=== PATIENT | male | born 1990 | race American Indian/Alaskan Native ===

== ENCOUNTER 2023-02-12 11:14 | Emergency (ER) | payer MEDICAID, SELFPAY ==
--- NOTE | ~2023-02-12 | US_ITS ---
EXAMINATION: US SCROTUM CLINICAL INFORMATION: Left testicle mass. COMPARISON: None available. TECHNIQUE: A sonogram of the scrotum was performed assessing sheriff-scale appearance and color Doppler flow. Spectral Doppler analysis of the arterial and venous flow were performed in the testes bilaterally. FINDINGS: RIGHT: Right testicle measures 4.6 x 2.4 x 2.8 cm, volume 16 mL. No focal testicular parenchymal lesions are visualized. Spectral Doppler analysis of the arterial and venous flow is normal in the right testis. Right epididymal head is normal in size. No right hydrocele or varicocele is seen. Right epididymal Doppler flow is normal. LEFT: Left testicle measures 4.5 x 2.2 x 2.6 cm, volume 14 mL. No focal testicular parenchymal lesions are visualized. Small appendix testis adjacent to the inferior testicle. Spectral Doppler analysis of the arterial and venous flow is normal in the left testis. Left epididymal head is normal in size. No left hydrocele or varicocele is seen. Left epididymal Doppler flow is normal. There is a oval shaped enterocolic solid avascular lesion just deep to the skin in the posterior left scrotum corresponding to palpable lump. This measures 0.6 x 0.4 x 0.9 cm. Ultrasound appearance is nonspecific. US/US scrotum doppler IMPRESSION: 0.6 x 0.4 x 0.9 cm solid appearing hyperechoic avascular lesion just deep to the skin corresponding to palpable abnormality. Ultrasound appearance is nonspecific. Otherwise normal scrotal ultrasound.
--- NOTE | ~2023-02-12 | US_ITS ---
EXAMINATION: US SCROTUM CLINICAL INFORMATION: Left testicle mass. COMPARISON: None available. TECHNIQUE: A sonogram of the scrotum was performed assessing sheriff-scale appearance and color Doppler flow. Spectral Doppler analysis of the arterial and venous flow were performed in the testes bilaterally. FINDINGS: RIGHT: Right testicle measures 4.6 x 2.4 x 2.8 cm, volume 16 mL. No focal testicular parenchymal lesions are visualized. Spectral Doppler analysis of the arterial and venous flow is normal in the right testis. Right epididymal head is normal in size. No right hydrocele or varicocele is seen. Right epididymal Doppler flow is normal. LEFT: Left testicle measures 4.5 x 2.2 x 2.6 cm, volume 14 mL. No focal testicular parenchymal lesions are visualized. Small appendix testis adjacent to the inferior testicle. Spectral Doppler analysis of the arterial and venous flow is normal in the left testis. Left epididymal head is normal in size. No left hydrocele or varicocele is seen. Left epididymal Doppler flow is normal. There is a oval shaped enterocolic solid avascular lesion just deep to the skin in the posterior left scrotum corresponding to palpable lump. This measures 0.6 x 0.4 x 0.9 cm. Ultrasound appearance is nonspecific. US/US scrotum IMPRESSION: 0.6 x 0.4 x 0.9 cm solid appearing hyperechoic avascular lesion just deep to the skin corresponding to palpable abnormality. Ultrasound appearance is nonspecific. Otherwise normal scrotal ultrasound.
[2023-02-12 11:31] VITALS: BP 135/88; PULSE 93; RESP 18; TEMP 36; O2SAT 99; BMI 29.4
--- NOTE | 2023-02-12 11:32 | ED.GENADULT ---
HPI - General Adult General Chief complaint: Urogenital-Male Stated complaint: abd pain Time Seen by Provider: 02/12/23 12:17 Source: patient Mode of arrival: ambulatory Limitations: no limitations History of Present Illness HPI narrative: 32 yo male presents to the ER for left testicular pain and painful urination. He states that he noticed a pimple on his left testicle about 3 to 4 days ago. He states that the pain is on and off. He reports painful urination that started yesterday. He reports that he leaks urine/mucous after urination. He denies abdominal pain, nausea, difficulty with urination. He reports that he is sexually active with his and uses protection. No N/V/D or abdominal pain. MD complaint: bump on left testicle, dysuria Onset (ago): day(s) Location: genitals and left Radiation: non-radiation Severity: moderate Quality: burning and aching Pain Consistency: intermittent Relieving factors: none Exacerbating factors: none Associated symptoms: denies other symptoms Treatments prior to arrival: none Related Data Previous Rx's Medication Instructions Recorded cephalexin 500 mg capsule 500 mg PO Q6H 7 days #28 caps 02/12/23 Allergies Allergy/AdvReac Type Severity Reaction Status Date / Time No Known Allergies Allergy Verified 02/12/23 11:31 Review of Systems Review of Systems: Yes all other systems are reviewed and are negative [facility] Social History Social History Advance Directives: No Advance Directives Information Provided: Yes Physical Exam ED Vital Signs: Vital Signs - 24 hr 02/12/23 11:31 Temperature 96.8 F Pulse Rate 93 Respiratory Rate 18 Blood Pressure 135/88 Pulse Oximetry 99 Oxygen Delivery Method Room Air BMI result Body Mass Index 29.4 Appearance: Alert. Oriented X3. No acute distress. Head: normocephalic, atraumatic. Eyes: Pupils equal, round and reactive to light. ENT: Pharynx normal. No tonsillar swelling or exudate. Neck: Normal inspection. Neck supple. CVS: Normal heart rate and rhythm. Pulses normal. Respiratory: No respiratory distress. Breath sounds normal. Abdomen: Soft and nontender. +BS x4 Skin: Skin warm and dry. Normal skin color. Normal skin turgor. No rashes. Genitourinary: 1 cm x 1 cm red fluctuant mass without surrounding eyrthemia or warmth of the left testicle Extremities: No lower extremity edema. No joint swelling. Neuro/psych: Oriented X 3. No motor deficit. No sensory deficit. CN II-XII intact. Normal speech and cognition. Course Course Course Narrative: This is an RME: Additional HPI, ROS, PE not included below will be deferred to primary provider. This is a 75-mlbl-ycu-male, with no known medical problems, presenting to the emergency department with complaints of hard painful lump on left testicle and dysuria x 1 week. Monogamous with . Hx of STIs in the past. Denies any fevers or chills. Denies hx of similar symptoms. Deferred exam until pt has a room in the main ER. VSS in department. Plan: UA and GC/Chlamydia urine ordered. Medications Administered Discontinued Medications Generic Name Dose Route Start Last Admin Trade Name Francesca PRN Reason Stop Dose Admin Ceftriaxone Sodium 500 mg/ 0 mg 02/12/23 13:20 02/12/23 13:37 Lidocaine HCl 1 ml IM 02/12/23 13:21 1 kit ONCE ONE Administration Procedures Abscess I/D Site: scrotum Side (if applicable): left Technique: incised with blade Sent for culture/gram staining?: No Irrigation: No Packing used?: none Medical Decision Making Medical Decision Making MDM Narrative: 31 yo male presents to the ER for left testicular pain and painful urination. He states that he had has a pimple like mass on his left testicle for 3-4 days. He states that he has noticed drainage from his penis after urination. On physcial examination there was a 1 cm x 1 cm red flucuant mass without surrounding erythemia or warmth of the left testicle. This is most consistent of an abscess and is unlikely to be zeke's gangrene as he is not a diabetic or morbidly obese. A small incision was made to drain the abscess. Urinalysis was normal. N. gonorrhoea PCR was positive and Chlamydia PCR was negative. Antibiotics prescribed for Gonorrhoea. manager administrative was used to explain the testing results, treatment. He was encouraged to discuss the results with his sexual partners. Stable for discharge home. Differential Diagnosis Differential Diagnoses: The differential diagnosis associated with the presentation includes NG, CT, cystitis, epididymis, proctitis, abscess of the left testicle, folliculitis, cellulitis, zeke's gangrene Lab Data [facility] Lab Attestation statement: I reviewed the patient's lab results. U/A normal. PCR + for gonorrhea, and negative for chlamydia Labs: Lab Results 02/12/23 02/12/23 Range/Units 11:44 11:44 Urine Color Yellow Urine Appearance Clear Urine pH 5.5 (5.0-9.0) Ur Specific [place] 1.025 (1.005-1.025) Urine Protein Negative (Neg-Trace) mg/dL Urine Glucose (UA) Negative (Negative) mg/dL Urine Ketones Negative (Negative) mg/dL Urine Blood Negative (Negative) Urine Nitrite Negative (Negative) Ur Leukocyte Esterase Negative (Negative) Chlam trachomat DNA PCR NOT DETECTED (Not Detect.) N.gonorrhoeae DNA (PCR) DETECTED A (Not Detect.) Independent Interpretation I performed an independent interpretation of an: Ultrasound Interpretation: Ultrasound was reviewed. Agree with radiologists findings. Radiology Impression Discussion of test interpretation with radiology: I have reviewed the radiologist's reading. Radiologist Impression: US scrotum doppler IMPRESSION: 0.6 x 0.4 x 0.9 cm solid appearing hyperechoic avascular lesion just deep to the skin corresponding to palpable abnormality. Ultrasound appearance is nonspecific. Otherwise normal scrotal ultrasound. Prescription Management I considered prescription management with: Antibiotic Critical Care Time Critical Care Time Critical Care Time: No Discharge Plan Discharge Clinical Impression: Gonorrhea, Abscess of testis Patient Disposition: Home, Self-Care Instructions: Gonorrhea (ED), Abscess (ED) Additional Instructions: You tested positive for gonorrhea today. This is a sexually transmitted infection. Your treated with intramuscular ceftriaxone. Take the prescribed antibiotic for the small abscess on your left testicle. Recommend warm soaks and warm baths to the area If you develop new or worsening symptoms call 911 or come back to the ER for further evaluation. Hoy diste positivo por gonorrea. Esta es alejandro infecci?n de transmisi?n sexual. Est? en tratamiento con ceftriaxona intramuscular. [place] el antibi?codie recetado para el sean?o absceso en merida test?culo demetrius. Recomiende remojos tibios y ba?os tibios en el ?yari. Si desarrolla s?ntomas nuevos o que empeoran, llame al 911 o regrese a la hugo de emergencias para alejandro evaluaci?n adicional. Prescriptions: New cephalexin 500 mg capsule 500 mg PO Q6H 7 Days Qty: 28 0RF Print Language: German
[2023-02-12 11:56] LABS: Appearance Urine Clear; Color Urine Yellow; Glucose Urine UA Negative (Negative); Leukocyte Esterase Urine Negative (Negative); Nitrite Urine Negative (Negative); PH 5.5 (5.0-9.0); Specific Gravity - Urine 1.025 (1.005-1.025); Urine Blood Negative (Negative); Urine Ketones Negative (Negative); Urine Protein Negative (Neg-Trace)
--- NOTE | 2023-02-12 13:01 | PC.NURSE ---
bedside us being performed
[2023-02-12 13:32] LABS: CT PCR NOT DETECTED (Not Detect.); NG PCR DETECTED (Not Detect.)
[2023-02-12] MEDS: cefTRIAXone sodium 500 MG, Lidocaine HCl 1 % MPF 1 ML IM (13:37)
--- NOTE | 2023-02-12 13:39 | PC.NURSE ---
patient a&ox3, pt medicated with im abx per request of provider
[2023-02-12 14:00] VITALS: BP 138/72; PULSE 90; RESP 18; TEMP 36.3; O2SAT 99
== END 2023-02-12 14:03 | disposition home or self-care (01) ==
PROVIDERS: Physician Assistant Medical; Emergency Provider Internal Medicine
DX: A54.9 Gonococcal infection, unspecified (principal); N45.4 Abscess of epididymis or testis; R30.0 Dysuria; N50.812 Left testicular pain; N50.811 Right testicular pain; R10.2 Pelvic and perineal pain
CPT/HCPCS: 0353U; 76870; 81003; 93975; 96372; 99283; 99284; J0696

== ENCOUNTER 2023-05-29 10:47 | Emergency (ER) | payer OTHER, SELFPAY ==
[2023-05-29 11:13] VITALS: BP 141/79; PULSE 87; RESP 18; TEMP 36.7; O2SAT 97; BMI 40.3
--- NOTE | 2023-05-29 11:15 | ED_ITS ---
HPI - Male Genitourinary General Chief complaint: Urogenital-Male Stated complaint: abd pain Time Seen by Provider: 05/29/23 11:46 Source: patient, RN notes reviewed and old records reviewed Mode of arrival: ambulatory History of Present Illness HPI Narrative: 32-year-old male with no significant past medical history presenting to the ED complaining of painful/itchy rash/lesion to penis noted 2 days ago. Also reports mild urinary discomfort. Reports recent sexual activity with a new partner, states condom broke, concern for STI. Also reports mild penile discharge. Denies fever/chills, abdominal pain, nausea/vomiting, fever. Related Data Previous Rx's Medication Instructions Recorded cephalexin 500 mg capsule 500 mg PO Q6H 7 days #28 caps 02/12/23 Allergies Allergy/AdvReac Type Severity Reaction Status Date / Time No Known Allergies Allergy Verified 05/29/23 11:17 Review of Systems Review of Systems: Constitutional: No Fever, No Chills, No Fatigue, No Malaise ENT/Mouth: No Hearing loss, No Ear Pain, No Nasal Congestion Eyes: No Eye Pain, No Swelling, No Redness Cardiovascular: No Chest Pain, No SOB Respiratory: No Cough, No Sputum, No Dyspnea Gastrointestinal: No Nausea, No Vomiting, No Diarrhea, No Constipation, No Abdominal pain Genitourinary: +penile d/c, No irregular bleeding, + Dysuria, No Urinary Frequency, No Hematuria, No Urinary Incontinence/retention, No Flank Pain Musculoskeletal: No joint pain, No Myalgias, No Joint Swelling Skin: +penile Lesions, No rash Yes all other systems are reviewed and are negative Constitutional: Constitutional: Reports as per [facility] Past Medical History Attestation statement: The following information was validated with the patient. Source: old records reviewed Social History Social History Advance Directives: No Physical Exam Vital Signs: Vital Signs: Last Vital Signs Temp 98.1 F 05/29/23 11:13 Pulse 87 05/29/23 11:13 Resp 18 05/29/23 11:13 BP 141/79 H 05/29/23 11:13 Pulse Ox 97 05/29/23 11:13 O2 Del Method Room Air 05/29/23 11:13 BMI result Body Mass Index 40.3 Const: General: cooperative, healthy appearing and no acute distress Orientation/consciousness: patient oriented x3 Limitations: no limitations HEENT: Head: Yes normal to inspection and Yes atraumatic Ears: hearing grossly normal bilaterally General nose exam: Normal external nose present Face and sinus: Yes normal facial exam Eyes: General: appearance normal, both eyes and all related structures EOM: EOMs intact bilaterally Neck: Neck: Yes normal visual inspection and Yes no meningeal signs Resp: Effort & Inspection: normal respiratory effort and no respiratory distress Cardio: Rate: regular rate GI: Inspection: Yes normal to inspection Palpation (GI): Soft to palpation, nontender, no guarding and not rigid : Other: +small cracked skin/open lesion to fores kin. Mildly tender. No surrounding erythema, no fluctuance/induration or drainage. No ulceration. No appreciable penile discharge Penis: uncircumcised Skin: Wounds: no wounds Neuro: General: patient oriented x3, tone normal and no meningeal signs Cranial nerves: Yes CN's II-XII intact bilaterally Gait exam (Neuro): Normal gait present Extrem: General: Yes normal to inspection Course Course Course Narrative: This is an RME: Additional HPI, ROS, PE not included below will be deferred to primary provider. This is a 68-dtvo-iwg-male presenting to the emergency department with complaints of penile rash. He also endorses having some penile discharge. He is otherwise feeling well. One questions about new sexual partners he denies but also states that ?he has been hanging out with some of his friends?. Vital signs stable. Able to visualize rash triage secondary to limited privacy. Will defer until able to examine area once he reports back to the main emergency department Plan: Gonorrhea chlamydia testing ordered -UA not infected Medical Decision Making Medical Decision Making MDM Narrative: 32-year-old male with no significant past medical history presenting to the ED complaining of painful/itchy rash/lesion to penis noted 2 days ago s/p intercourse with new partner. On exam vital signs stable, NAD, nontoxic appea ring, physical exam as above, concern for STI v UTI vs balanitis. Lower suspicion for herpes at this time based on clinical exam however patient would like impaired treatment. Low suspicion for testicular torsion, or appendicitis/diverticulitis Plan: CT NG, herpes, UA Patient requesting/agreeable to empiric treatment with IM Rocephin, doxycycline, Valtrex in the ED Please refer to course for remaining clinical decision making, interpretation of labs/imaging results, and discussions with consultants and/or family members. Results discussed with patient including worrisome signs and symptoms and strict return precautions, and when to return to the emergency department. They verbalized understanding and feel safe for discharge at this time. Differential Diagnosis Differential Diagnoses: The differential diagnosis associated with the presentation includes As above Lab Data [facility] Lab Attestation statement: I reviewed the patient's lab results. Labs: Lab Results 05/29/23 Range/Units 11:55 Urine Color Yellow Urine Appearance Clear Urine pH 6.0 (5.0-9.0) Ur Specific [place] 1.010 (1.005-1.025) Urine Protein Negative (Neg-Trace) mg/dL Urine Glucose (UA) Negative (Negative) mg/dL Urine Ketones Negative (Negative) mg/dL Urine Blood Negative (Negative) Urine Nitrite Negative (Negative) Ur Leukocyte Esterase Negative (Negative) External Record Review External record reviewed: Inpatient record, Office record, Outpatient record, Prior outpatient labs, Prior outpatient radiology, Primary care record and Outside ED record Tests considered The following testing was considered but not selected: As above Prescription Management I considered prescription management with: Antibiotic Discharge Plan Discharge Clinical Impression: Lesion of penis Patient Disposition: Home, Self-Care Instructions: Baltoddtis (ED) Prescriptions: No Action cephalexin 500 mg capsule 500 mg PO Q6H 7 Days Qty: 28 0RF
[2023-05-29 12:01] LABS: Appearance Urine Clear; Color Urine Yellow; Glucose Urine UA Negative (Negative); Leukocyte Esterase Urine Negative (Negative); Nitrite Urine Negative (Negative); Urine Blood Negative (Negative); Urine Ketones Negative (Negative); Urine Protein Negative (Neg-Trace)
[2023-05-29] MEDS: Doxycycline Monohydrate 100 MG CAPSULE PO (12:37)
[2023-05-29] MEDS: valACYclovir HCL 1,000 MG TABLET 1000 MG PO (12:37)
[2023-05-29] MEDS: cefTRIAXone sodium 500 MG, Lidocaine HCl 1 % MPF 1 ML IM (12:40)
[2023-05-30 10:48] LABS: CT PCR DETECTED (Not Detect.); NG PCR NOT DETECTED (Not Detect.)
== END 2023-05-29 12:45 | disposition home or self-care (01) ==
PROVIDERS: Physician Assistant; Physician Assistant Medical; Emergency Provider Emergency Medicine Emergency Medical Services
DX: A56.2 Chlamydial infection of genitourinary tract, unspecified (principal); R36.9 Urethral discharge, unspecified
CPT/HCPCS: 0353U; 36415; 81003; 87255; 96372; 99282; 99284; J0696